=== PATIENT | female | born 1990 | race Caucasian/White ===

== ENCOUNTER 2018-03-10 05:42 | Day surgery (SDC) | payer OTHER, MEDICAID ==
[2018-03-10] MEDS: LACTATED RINGER'S 1,000 ML IV* (06:29)
[2018-03-10] MEDS ORDERED: PROPOFOL 20 ML (06:41)
[2018-03-10] MEDS ORDERED: LIDOCAINE 100 MG SYRINGE (06:41)
[2018-03-10] MEDS ORDERED: FENTAnyl 50 MCG/ML VIAL (06:41)
[2018-03-10] MEDS ORDERED: ROCURONIUM 50 MG INJ (06:41)
[2018-03-10] MEDS ORDERED: MIDAZOLAM 1 MG/ML 2 ML INJ (06:41)
[2018-03-10] MEDS ORDERED: MEPERIDINE 25 MG INJ IV (07:00)
[2018-03-10] MEDS ORDERED: FENTAnyl 50 MCG/ML VIAL IV ×2 (07:00)
[2018-03-10] MEDS ORDERED: METOCLOPRAMIDE 10 MG INJ IV (07:00)
[2018-03-10] MEDS ORDERED: OXYCODONE/ACETAMINOPHEN (5/325) TAB PO ×2 (07:00)
[2018-03-10] MEDS ORDERED: CEFAZOLIN 1 GM INJ (07:53)
[2018-03-10] MEDS: CEFAZOLIN 2 GM/50 ML (PMX) 50 ML IVPB (08:05)
[2018-03-10] MEDS ORDERED: FAMOTIDINE 20 MG INJ (08:08)
[2018-03-10] MEDS ORDERED: METOCLOPRAMIDE 10 MG INJ (08:08)
[2018-03-10] MEDS ORDERED: ONDANSETRON 4 MG INJ (08:08)
[2018-03-10] MEDS ORDERED: DEXAMETHASONE 4 MG/ML 1 ML INJ (08:08)
[2018-03-10] MEDS ORDERED: LABETALOL HCL 20MG INJ (08:11)
[2018-03-10] MEDS ORDERED: SUGAMMADEX SODIUM 200 MG/2 ML VIAL IV (08:13)
[2018-03-10] MEDS: BUPIVACAINE 0.25%/EPI (SDV) 30 ML INJ (08:24)
[2018-03-10] MEDS: ONDANSETRON 4 MG INJ IV (09:06)
[2018-03-10] MEDS: FENTAnyl 50 MCG/ML VIAL IV (09:11)
== END 2018-03-10 10:20 | disposition home or self-care (01) ==
LOC: SDS 05:42
DX: Z30.2 Encounter for sterilization (principal)
CPT/HCPCS: 58670; 84703